=== PATIENT | female | born 1985 | race Caucasian/White ===

== ENCOUNTER → 2023-06-15 07:42 | Outpatient (REF) | payer OTHER, SELFPAY | LOC: MRI 3T 07:42 | PROVIDERS: ATTENDING PHYSICIAN Internal Medicine; FAMILY PHYSICIAN Family Medicine | DX: M35.00 Sjogren syndrome, unspecified (principal); R63.4 Abnormal weight loss; R11.0 Nausea; K62.89 Other specified diseases of anus and rectum; R10.12 Left upper quadrant pain | CPT/HCPCS: 72197; 74183; A9575 ==

== ENCOUNTER → 2023-06-22 07:37 | Outpatient (REF) | payer OTHER, SELFPAY | LOC: RAD 07:37 | PROVIDERS: ATTENDING PHYSICIAN Internal Medicine; FAMILY PHYSICIAN Family Medicine | DX: M35.00 Sjogren syndrome, unspecified (principal); R63.4 Abnormal weight loss; R11.0 Nausea; K62.89 Other specified diseases of anus and rectum; R10.12 Left upper quadrant pain | CPT/HCPCS: 78264; A9541 ==